=== PATIENT | male | born 1955 | race Caucasian/White ===

== ENCOUNTER 2020-09-04 16:51 | Day surgery (SDCO) | payer OTHER ==
[~2020-09-04 16:51] MED LIST: AMARYL2 MG PO; ASPIRIN CHEWABL81 MG PO; ATORVASTATIN CA20 MG PO; CARDIZEM30 MG PO; COUMADIN7.5 MG PO; COZAAR 25MG TAB25 MG PO; DEXILANT60 MG PO; DIGITEK125 MCG PO; DULOXETINE HCL60 MG PO; ELIQUIS5 MG PO; LASIX40 MG PO; LIPITOR40 MG PO; LISINOPRIL 10MG10 MG PO; LOPRESSOR50 MG PO; METFORMIN HCL500 M2 PO; METFORMIN HCL500 MG PO; PERCOCET 7.5/321 TAB PO; PLAVIX75 MG PO; POTASSIUM20 MEQ/11 PO; PROAMATINE5 MG PO; PROTONIX 40MG T40 MG PO; SUBOXONE 8 MG-1 EACH PO; SUBOXONE 8 MG-1 EACH SL; TAMIFLU 75MG CA75 MG PO; TOPROL XL 25MG25 MG PO; TORSEMIDE100 MG PO; VITAMIN B-121000 MC1 PO; VOLTAREN **OUT50 MG TD; WARFARIN SODIUM5 MG PO
[2020-09-04 19:59] LABS: BASOPHIL 0.9 % (0-2); EOSINOPHIL 4.1 % (0-5); HGB 14.9 g/dl (13.2-18.0); LYMPHOCYTE 24.4 % (15-48); MCH 29.4 pg (25.0-31.0); MCHC 33.1 g/dL (32.0-36.0); MCV 88.9 fL (78.0-100.0); MONOCYTE 6.8 % (0-12); MPV 10.8 fL (6.0-9.5); NEUTROPHIL 63.4 % (41-80); NRBC 0; PLT 259 K/uL (150-400); RBC 5.06 M/uL (4.70-6.00); RDW 12.4 % (11.5-14.0); WBC 10.4 K/uL (4.0-10.5)
[2020-09-04 20:03] LABS: INR 1.11 (0.9-1.2); PROTHROMBIN TIME 13.6 SECONDS (11.4-13.6); PTT 33.5 SECONDS (22.2-34.7)
[2020-09-04 20:09] LABS: ALBUMIN 3.5 g/dL (3.4-5.0); BILIRUBIN - TOTAL 0.5 mg/dL (0.2-1.0); BUN/CREAT RATIO (CALC) 14.6 RATIO; CREATININE 1.71 mg/dL (0.67-1.17); GLOBULIN (CALCULATION) 4.1 g/dL; POTASSIUM 4.3 mmol/L (3.5-5.1); TOTAL PROTEIN 7.6 g/dL (6.4-8.2)
[2020-09-05 06:15] LABS: EOSINOPHIL 4.5 % (0-5); HCT 47.1 % (42.0-52.0); HGB 15.1 g/dl (13.2-18.0); LYMPHOCYTE 26.9 % (15-48); MCH 28.8 pg (25.0-31.0); MCHC 32.1 g/dL (32.0-36.0); MCV 89.9 fL (78.0-100.0); MONOCYTE 7.4 % (0-12); MPV 10.1 fL (6.0-9.5); NEUTROPHIL 59.7 % (41-80); NRBC 0; PLT 259 K/uL (150-400); RBC 5.24 M/uL (4.70-6.00); RDW 12.5 % (11.5-14.0); WBC 11.2 K/uL (4.0-10.5)
[2020-09-05 06:37] LABS: CREATININE 1.93 mg/dL (0.67-1.17)
[2020-09-05 06:59] LABS: POTASSIUM 4.9 mmol/L (3.5-5.1)
[2020-09-05] MEDS ORDERED: AMARYL2 MG PO (09:40)
[2020-09-05] MEDS ORDERED: LANTUS **100 UNITS/ SC (09:41)
[2020-09-05] MEDS ORDERED: METFORMIN HCL500 MG PO (09:42)
[2020-09-05] MEDS ORDERED: DRISDOL50000 UNIT PO (09:45)
[2020-09-05] MEDS ORDERED: DIOVAN80 MG PO (09:46)
[2020-09-05] MEDS ORDERED: LIPITOR40 MG PO (09:46)
[2020-09-05] MEDS ORDERED: ZUBSOLV 5.7-1.1 EACH SL (09:48)
[2020-09-05] MEDS ORDERED: STIOLTO RESPIMAT (09:53)
--- NOTE | 2020-09-05 14:32 | NUR ---
09/05/20 Mr. Licona lives alone. He has a daughter whom he sees every 2 - [address] Licona continues to drive. He reports to be able to perform housekeeping with some difficulty. He was not interested in [facility] homemaker services. Mr. Licona has a standard walker and cane, which he uses periodically. Mr. Licona is interested in home delivered meals. He was educated to [employer] and [facility] [facility] [employer] [facility].
[2020-09-06 05:55] LABS: BASOPHIL 0.8 % (0-2); HCT 45.4 % (42.0-52.0); HGB 15.1 g/dl (13.2-18.0); LYMPHOCYTE 28.8 % (15-48); MCH 29.4 pg (25.0-31.0); MCHC 33.3 g/dL (32.0-36.0); MCV 88.3 fL (78.0-100.0); MPV 10.1 fL (6.0-9.5); NEUTROPHIL 60.1 % (41-80); NRBC 0; PLT 252 K/uL (150-400); RBC 5.14 M/uL (4.70-6.00); RDW 12.3 % (11.5-14.0); WBC 11.6 K/uL (4.0-10.5)
[2020-09-06 06:43] LABS: BUN/CREAT RATIO (CALC) 15.8 RATIO; CREATININE 1.9 mg/dL (0.67-1.17); POTASSIUM 4.7 mmol/L (3.5-5.1)
[2020-09-07 06:37] LABS: BASOPHIL 0.7 % (0-2); EOSINOPHIL 2.2 % (0-5); HCT 50.5 % (42.0-52.0); HGB 16.4 g/dl (13.2-18.0); LYMPHOCYTE 12.2 % (15-48); MCH 28.9 pg (25.0-31.0); MCHC 32.5 g/dL (32.0-36.0); MCV 89.1 fL (78.0-100.0); MONOCYTE 6.3 % (0-12); MPV 10.4 fL (6.0-9.5); NEUTROPHIL 77.9 % (41-80); NRBC 0; PLT 268 K/uL (150-400); RBC 5.67 M/uL (4.70-6.00); RDW 12.4 % (11.5-14.0); WBC 13.2 K/uL (4.0-10.5)
[2020-09-07 07:28] LABS: BUN/CREAT RATIO (CALC) 18.7 RATIO; CREATININE 1.93 mg/dL (0.67-1.17); POTASSIUM 4.6 mmol/L (3.5-5.1)
--- NOTE | 2020-09-07 12:02 | NUR ---
09/07/20 Mr. Licona is increasingly more interactive. Discharge is anticipated for today following an endoscopy. No discharge planning needs are anticipated.
[2020-09-07] MEDS ORDERED: CARAFATE1 GM PO (14:13)
[2020-09-07] MEDS ORDERED: PROTONIX 40MG T40 MG PO (14:13)
== END 2020-09-07 15:33 | disposition home or self-care (01) ==
LOC: FER 16:51 → FICU 09-05 01:48 → FMS 09-06 08:25
PROVIDERS: Internal Medicine; Nurse Practitioner; Student in an Organized Health Care Education/Training Program; ADMIT Allergy & Immunology Allergy
DX: K29.80 Duodenitis without bleeding (principal); K29.70 Gastritis, unspecified, without bleeding; R07.89 Other chest pain; I48.20 Chronic atrial fibrillation, unspecified; I13.0 Hypertensive heart and chronic kidney disease with heart failure and stage 1 through stage 4 chronic kidney disease, or unspecified chronic kidney disease; E11.22 Type 2 diabetes mellitus with diabetic chronic kidney disease; N18.4 Chronic kidney disease, stage 4 (severe); I50.40 Unspecified combined systolic (congestive) and diastolic (congestive) heart failure; Z20.822 Contact with and (suspected) exposure to COVID-19; N17.9 Acute kidney failure, unspecified; F17.210 Nicotine dependence, cigarettes, uncomplicated; J44.9 Chronic obstructive pulmonary disease, unspecified; K21.9 Gastro-esophageal reflux disease without esophagitis; M19.90 Unspecified osteoarthritis, unspecified site; G89.29 Other chronic pain; M54.9 Dorsalgia, unspecified; I25.5 Ischemic cardiomyopathy; F10.21 Alcohol dependence, in remission; E78.5 Hyperlipidemia, unspecified; I25.2 Old myocardial infarction; Z79.01 Long term (current) use of anticoagulants; Z79.4 Long term (current) use of insulin; Z79.82 Long term (current) use of aspirin; Z79.899 Other long term (current) drug therapy; Z88.8 Allergy status to other drugs, medicaments and biological substances; Z95.5 Presence of coronary angioplasty implant and graft; Z95.810 Presence of automatic (implantable) cardiac defibrillator
CPT/HCPCS: 36415; 71045; 80048; 80053; 80061; 82962; 83880; 84484; 85025; 85610; 85730; 93005; G0378; J2250; J2405; J2704; J7120; U0002

== ENCOUNTER 2020-09-30 22:10 | Emergency (ER) | payer OTHER ==
[~2020-09-30 22:10] MED LIST changes: +CARAFATE1 GM PO; +DIOVAN80 MG PO; +DRISDOL50000 UNIT PO; +LANTUS **100 UNITS/ SC; +STIOLTO RESPIMAT; +ZUBSOLV 5.7-1.1 EACH SL
[2020-09-30 22:57] LABS: BASOPHIL 0.9 % (0-2); EOSINOPHIL 4.4 % (0-5); HCT 42.8 % (42.0-52.0); HGB 14.1 g/dl (13.2-18.0); LYMPHOCYTE 27.5 % (15-48); MCH 29.1 pg (25.0-31.0); MCHC 32.9 g/dL (32.0-36.0); MCV 88.2 fL (78.0-100.0); MONOCYTE 8.5 % (0-12); NRBC 0; PLT 273 K/uL (150-400); RBC 4.85 M/uL (4.70-6.00); RDW 13.2 % (11.5-14.0); WBC 10.6 K/uL (4.0-10.5)
[2020-09-30 23:09] LABS: ALBUMIN 3.6 g/dL (3.4-5.0); BILIRUBIN - TOTAL 0.3 mg/dL (0.2-1.0); BUN/CREAT RATIO (CALC) 14.5 RATIO; CREATININE 1.65 mg/dL (0.67-1.17); GLOBULIN (CALCULATION) 4.3 g/dL; TOTAL PROTEIN 7.9 g/dL (6.4-8.2)
[2020-10-01 01:39] LABS: INR 1.1 (0.9-1.2); PROTHROMBIN TIME 13.5 SECONDS (11.4-13.6); PTT 34.9 SECONDS (22.2-34.7)
== END 2020-10-01 03:03 | disposition other institution (70) ==
LOC: FER 22:10
PROVIDERS: Emergency Medicine
DX: R07.89 Other chest pain (principal); I48.91 Unspecified atrial fibrillation; K21.9 Gastro-esophageal reflux disease without esophagitis; K29.80 Duodenitis without bleeding; R79.89 Other specified abnormal findings of blood chemistry; E11.22 Type 2 diabetes mellitus with diabetic chronic kidney disease; N18.9 Chronic kidney disease, unspecified; F17.210 Nicotine dependence, cigarettes, uncomplicated; Z95.0 Presence of cardiac pacemaker; Z79.01 Long term (current) use of anticoagulants; Z88.8 Allergy status to other drugs, medicaments and biological substances
CPT/HCPCS: 36415; 71045; 80053; 84484; 85025; 85610; 85730; 93005; J1644

== ENCOUNTER 2021-09-08 12:50 | Emergency (ER) | payer OTHER ==
[2021-09-08 14:58] LABS: BASOPHIL 1.5 % (0-2); EOSINOPHIL 4.9 % (0-7); HCT 44.5 % (42.0-52.0); HGB 14.5 g/dl (13.2-18.0); LYMPHOCYTE 30.8 % (15-48); MCH 30.4 pg (25.0-31.0); MCHC 32.6 g/dL (32.0-36.0); MCV 93.3 fL (78.0-100.0); MONOCYTE 11.5 % (0-12); MPV 10.3 fL (6.0-9.5); NEUTROPHIL 50.7 % (41-80); NRBC 0; PLT 215 K/uL (150-400); RBC 4.77 M/uL (4.70-6.00); RDW 13.8 % (11.5-14.0); WBC 6.8 K/uL (4.0-10.5)
[2021-09-08 15:22] LABS: BUN/CREAT RATIO (CALC) 10.8 RATIO; CREATININE 1.67 mg/dL (0.67-1.17); POTASSIUM 4.8 mmol/L (3.5-5.1)
[2021-09-08 15:57] LABS: CORONAVIRUS 2019 SARS-COV-2 NEGATIVE (NEGATIVE); INFLUENZA A NAA NEGATIVE (NEGATIVE)
[2021-09-08] MEDS ORDERED: LASIX20 MG PO (18:08)
[2021-09-08] MEDS ORDERED: MEDROL 4MG DOSEP4 MG PO (18:08)
[2021-09-08] MEDS ORDERED: K-TAB ER20 MEQ PO (18:13)
== END 2021-09-08 18:45 | disposition home or self-care (01) ==
LOC: FER 12:50
PROVIDERS: Nurse Practitioner Family
DX: I11.0 Hypertensive heart disease with heart failure (principal); I50.9 Heart failure, unspecified; J44.1 Chronic obstructive pulmonary disease with (acute) exacerbation; Z88.8 Allergy status to other drugs, medicaments and biological substances; Z88.6 Allergy status to analgesic agent; Z20.822 Contact with and (suspected) exposure to COVID-19
CPT/HCPCS: 36415; 71045; 71275; 80048; 83880; 84484; 85025; 85379; 93005; 94640; 94664; J1100; J1940; J7030; U0002